=== PATIENT | female | born 1955 | race Caucasian/White ===

== ENCOUNTER → 2024-02-22 07:26 | Outpatient (REF) | payer OTHER, SELFPAY | LOC: PAVMRI 07:26 | PROVIDERS: ATTENDING PHYSICIAN Internal Medicine Hematology & Oncology | DX: N18.9 Chronic kidney disease, unspecified (principal); M51.17 Intervertebral disc disorders with radiculopathy, lumbosacral region; M81.0 Age-related osteoporosis without current pathological fracture; N60.29 Fibroadenosis of unspecified breast | CPT/HCPCS: 74183; A9575 ==

== ENCOUNTER → 2025-05-01 12:59 | Outpatient (REF) | payer MEDICARE, SELFPAY | LOC: PAVMRI 12:59 | PROVIDERS: ATTENDING PHYSICIAN Internal Medicine Hematology & Oncology | DX: N18.9 Chronic kidney disease, unspecified (principal); N60.29 Fibroadenosis of unspecified breast; M81.0 Age-related osteoporosis without current pathological fracture; M51.17 Intervertebral disc disorders with radiculopathy, lumbosacral region; E07.9 Disorder of thyroid, unspecified; Z13.1 Encounter for screening for diabetes mellitus; D50.9 Iron deficiency anemia, unspecified | CPT/HCPCS: 74183; A9575 ==